=== PATIENT | female | born 1965 | race Caucasian/White ===

== ENCOUNTER 2020-04-04 08:48 | Emergency (ER) | payer BC ==
[~2020-04-04] VITALS: Ht 167.6 cm; Wt 113.6 kg
[~2020-04-04 08:48] MED LIST: AMOXICILLIN875 MG PO; AUGMENTIN875TAB PO; AVIANE PO; BENZONATATE200 MG PO; DOXYCYCL HYC100 MG PO; FLOVENT HFA110 MCG IN; MUCINEX600 MG PO; OMNICEF300 MG PO; PREDNISONE10 MG PO; PROAIR HFA IN; QVAR80 MCG IN; SINGULAIR10 MG PO; TUBERSOL5 MG/0.1 M ID
[2020-04-04] MEDS ORDERED: FLEXERIL5 M1 PO (09:43)
[2020-04-04] MEDS ORDERED: MOTRIN800 MG PO (09:43)
[2020-04-04 10:10] VITALS: BP 121/81
== END 2020-04-04 10:10 | disposition home or self-care (01) | DRG 563 ==
LOC: ED 08:48
DX: S39.012A Strain of muscle, fascia and tendon of lower back, initial encounter (principal); M62.830 Muscle spasm of back; J44.9 Chronic obstructive pulmonary disease, unspecified; X50.0XXA Overexertion from strenuous movement or load, initial encounter; Y92.219 Unspecified school as the place of occurrence of the external cause; Y99.0 Civilian activity done for income or pay

== ENCOUNTER 2020-07-06 11:34 | Emergency (ER) | payer OTHER, BC ==
[~2020-07-06] VITALS: Ht 167.6 cm; Wt 113.0 kg
[~2020-07-06 11:34] MED LIST changes: +FLEXERIL5 M1 PO; +MOTRIN800 MG PO
[2020-07-06 12:45] VITALS: BP 166/70
== END 2020-07-06 12:45 | disposition home or self-care (01) | DRG 605 ==
LOC: ED 11:34
DX: S90.31XA Contusion of right foot, initial encounter (principal); W20.8XXA Other cause of strike by thrown, projected or falling object, initial encounter; Y92.219 Unspecified school as the place of occurrence of the external cause; Y99.0 Civilian activity done for income or pay